=== PATIENT | female | born 2000 | race African-American/Black ===

== ENCOUNTER 2022-10-20 00:09 | Emergency (ER) | payer SELFPAY ==
--- NOTE | ~2022-10-20 | XR_ITS ---
XR foot LT min 3V 10/20/2022 06:11 Indication: Left foot pain Procedure: 3 views left foot Comparison: 11/29/2015 Findings: There is fusion of the navicular and medial cuneiform, possibly developmental. Normal qualifications examiner alization. Lisfranc joint intact. 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 There are degenerative changes of the talonavicular joint with loose body. No acute fracture or traumatic malalignment. Impression: 1: No acute fracture. Reviewed, dictated and finalized at location A. Impression: 1: No acute fracture.
[2022-10-20 00:25] VITALS: BP 109/76; PULSE 95; RESP 16; TEMP 36.1; O2SAT 100
[2022-10-20 01:40] VITALS: BP 118/79; PULSE 74; RESP 18; TEMP 36.4; O2SAT 100
--- NOTE | 2022-10-20 02:40 | ED.GENADULT ---
HPI - General Adult General Chief complaint: Extremity Injury, Lower Stated complaint: left foot pain Time Seen by Provider: 10/20/22 01:26 History of Present Illness HPI narrative: Patient 22-year-old female who presents emerged department with chief complaint of left foot pain. Patient reports that she hit her foot underneath a refrigerator and remote noticed a small bump in the metatarsal area of the dorsum of her left foot at the great toe. Patient reports that the area is tender to touch reports that she is able to ambulate without difficulty patient reports she has not seen her primary care provider for the Related Data Allergies Allergy/AdvReac Type Severity Reaction Status Date / Time No Known Allergies Allergy Verified 10/20/22 00:09 Review of Systems Review of Systems: A 10 system review of systems was completed on the patient and is negative except for what is stated in the HPI. Nursing and ancillary documentation was reviewed. Exam Narrative: GENERAL: Well-appearing, well-nourished, and in no acute distress. HEAD: Normocephalic, atraumatic. EYES: PERRLA and EOMI. ENT: Nares clear, no rhinorrhea or epistaxis. Mucous membranes moist. NECK: Supple. CHEST: Clear to auscultation. No respiratory distress. HEART: Regular rate and rhythm. No murmur heard. Normal peripheral pulses. ABDOMEN: Soft, nontender, nondistended, normal active bowel sounds. EXTREMITIES: Normal range of motion. No edema. Tenderness to palpation of the dorsum of the left foot at the first metatarsal SKIN: Warm, dry, no rash. NEURO: No focal deficits. Alert and oriented x3. PSYCH: Normal mood and affect. Course Vital Signs Vital signs: Vital Signs Temperature 36.1 C L 10/20/22 00:25 Pulse Rate 95 10/20/22 00:25 Respiratory Rate 16 10/20/22 00:25 Blood Pressure 109/76 10/20/22 00:25 Pulse Oximetry 100 10/20/22 00:25 Oxygen Delivery Room Air 10/20/22 00:25 Temperature 36.4 C L 10/20/22 01:40 Pulse Rate 74 10/20/22 01:40 Respiratory Rate 18 10/20/22 01:40 Blood Pressure 118/79 10/20/22 01:40 Pulse Oximetry 100 10/20/22 01:40 Oxygen Delivery Room Air 10/20/22 00:25 Medical Decision Making MDM Narrative Medical decision making narrative: Differential diagnosis considered fracture, contusion Ankle x-rays of the left foot showed no evidence of fracture Vital Signs Vital Signs: Vital Signs Temperature 36.1 C L 10/20/22 00:25 Pulse Rate 95 10/20/22 00:25 Respiratory Rate 16 10/20/22 00:25 Blood Pressure 109/76 10/20/22 00:25 Pulse Oximetry 100 10/20/22 00:25 Oxygen Delivery Room Air 10/20/22 00:25 Temperature 36.4 C L 10/20/22 01:40 Pulse Rate 74 10/20/22 01:40 Respiratory Rate 18 10/20/22 01:40 Blood Pressure 118/79 10/20/22 01:40 Pulse Oximetry 100 10/20/22 01:40 Oxygen Delivery Room Air 10/20/22 00:25 Discharge Plan Discharge Clinical Impression: Contusion of foot, left Patient Disposition: Home, Self-Care Condition: Stable Instructions: Antibiotic Form, Foot Contusion (ED) Follow-up/Referrals: PHYSICIAN,[employer] [Primary Care Provider] - Time of Disposition: 02:42
[2022-10-20 03:04] VITALS: BP 128/74; PULSE 75; RESP 18; TEMP 36.8
== END 2022-10-20 03:06 | disposition home or self-care (01) ==
PROVIDERS: Emergency Provider Emergency Medicine
DX: S90.32XA Contusion of left foot, initial encounter (principal); W22.09XA Striking against other stationary object, initial encounter
CPT/HCPCS: 73630; 99283